=== PATIENT | male | born 1955 | race Caucasian/White ===

== ENCOUNTER → 2017-10-04 | Outpatient (CLI) | payer BC | LOC: ZCOL.LAB 15:08 → ZLAB.STJ 15:08 | DX: H92.12 Otorrhea, left ear (principal) ==

== ENCOUNTER 2017-10-29 06:09 | Day surgery (SDC) | payer BC ==
[~2017-10-29] VITALS: Ht 195.6 cm; Wt 128.4 kg
[2017-10-29] MEDS ORDERED: GLUCOTROL10 MG PO (06:27)
[2017-10-29] MEDS ORDERED: ZOCOR 20MG20 MG PO (06:28)
[2017-10-29] MEDS ORDERED: GLUCOPHAGE500 MG/TAB PO (06:28)
[2017-10-29] MEDS ORDERED: BASAGLAR K100 UNIT/1 SQ (06:28)
[2017-10-29] MEDS ORDERED: MULTI VITAMINS1 TAB PO (06:29)
[2017-10-29] MEDS ORDERED: VFEND 200MG200 MG PO (06:29)
[2017-10-29] MEDS ORDERED: EFFEXOR-XR150 MG PO (06:29)
[2017-10-29] MEDS ORDERED: FLONASEALLERGY NS (06:30)
[2017-10-29 07:10] VITALS: BP 131/74; PULSE 86; TEMP 97.8
[2017-10-29 09:09] VITALS: BP 127/73; PULSE 80; TEMP 97.3
[2017-10-29] MEDS ORDERED: NORCO 325 MG-51 TAB PO (09:22)
[2017-10-29] MEDS ORDERED: MOTRIN 600600 MG/TAB PO (09:23)
[2017-10-29 09:24] VITALS: BP 141/80; PULSE 78
[2017-10-29 09:39] VITALS: BP 131/72; PULSE 76
[2017-10-29 09:54] VITALS: BP 137/59; PULSE 73
[2017-10-29 10:24] VITALS: BP 132/73; PULSE 70
== END 2017-10-29 10:56 | disposition home or self-care (01) ==
LOC: SDCO 06:09
DX: C91.10 Chronic lymphocytic leukemia of B-cell type not having achieved remission (principal); E11.9 Type 2 diabetes mellitus without complications; E78.00 Pure hypercholesterolemia, unspecified; F32.9 Major depressive disorder, single episode, unspecified; Z79.84 Long term (current) use of oral hypoglycemic drugs; Z87.891 Personal history of nicotine dependence
CPT/HCPCS: C1788; J0690; J1644; J1815; J2250; J2704; J7030